=== PATIENT | male | born 1990 | race Caucasian/White ===

== ENCOUNTER 2020-09-10 07:17 | Emergency (ER) | payer SELFPAY ==
[2020-09-10 07:20] VITALS: BP 142/101; PULSE 97; RESP 15; TEMP 36.2; O2SAT 99; BMI 24.4
[2020-09-10] MEDS: ketorolac 60 mg/2 mL INJ IM (07:34)
[2020-09-10] MEDS: HYDROcodone-acetaminophen 5-325 mg Tablet 2 TAB PO (07:34)
[2020-09-10 07:42] VITALS: BP 142/101; PULSE 93; RESP 20; O2SAT 98
[2020-09-10 07:44] VITALS: BP 160/117; PULSE 95; RESP 18; O2SAT 96
--- NOTE | 2020-09-10 07:46 | ED_ITS ---
HPI - Dental/Oral General: Chief complaint: Dental/Oral Stated complaint: Tooth Pain Time Seen by Provider: 09/10/20 07:20 History of Present Illness: HPI Narrative: 30-year-old male comes in complaining of left lower jaw pain radiating down into his neck he denies difficulty breathing or swallowing. No fever. He has not seen a dentist. He has no drainage. He has a fractured tooth that broke at the gumline bleeding no swelling no drainage MD Complaint: tooth pain Teeth map: 1. Onset (ago): day(s) Duration: constant Severity: severe Relieving factors: nothing Exacerbating factors: chewing and drinking fluids Context: history of dental caries Associated symptoms: Reports ear or mastoid pain; Denies fever(s), gum swelling, odynophagia, sore throat or tongue swelling Treatment prior to arrival: none Review of Systems Const: Denies: fever(s) ENMT: Reports: ear or mastoid pain; Denies: odynophagia Card: Denies: chest pain, edema, dyspnea on exertion or orthopnea Resp: Denies: dyspnea, productive cough or non-productive cough GI: Denies: abdominal pain, nausea, vomiting, hematemesis, coffee ground emesis, diarrhea, constipation, bloating, hematochezia or melena : Denies: flank pain, dysuria, urinary frequency or urinary urgency Skin/Breast: Denies: rash or pruritus All/Imm: Denies: tongue swelling Physical Exam Const: COMMON NORMALS: no acute distress GENERAL APPEARANCE: cooperative and comfortable ORIENTATION/CONSCIOUSNESS: Yes awake, Yes oriented to person, Yes oriented to place and Yes oriented to time HENMT: COMMON NORMALS: normocephalic, atraumatic and hearing grossly normal bilaterally HEAD & SCALP: normocephalic and atraumatic Neck/C-Spine: COMMON NORMALS: full ROM, no lymphadenopathy, supple and no JVD Lymph: LYMPHATIC: no lymphadenopathy noted and no lymphedema noted Resp: COMMON NORMALS: normal respiratory effort, No retractions, No use of accessory muscles and clear to auscultation bilaterally AUSCULTATION: clear to auscultation bilaterally Cardio: COMMON NORMALS: no JVD, regular rate, regular rhythm and No murmurs present (Cardio) RATE: regular rate RHYTHM: regular rhythm Neuro: SENSORIUM/ORIENTATION: Yes oriented to person, Yes oriented to place and Yes oriented to time Skin: COMMON NORMALS: no rashes or lesions noted GENERAL SKIN EXAM: no rashes or lesions noted Course Vital Signs: Vital signs: Vital Signs Temperature 97.1 F L 09/10/20 07:20 Pulse Rate 95 09/10/20 07:44 Respiratory Rate 18 09/10/20 07:44 Blood Pressure 160/117 09/10/20 07:44 Pulse Oximetry 96 09/10/20 07:44 Discharge Plan Discharge Patient Disposition: Home Clinical Impression: Dental caries Condition: Stable Prescriptions: New Augmentin 875-125 mg tablet 1 tab PO BID Qty: 10 RF: 0 acetaminophen-codeine 300-30 mg tablet 1 tab PO Q6H PRN (Reason: pain) Qty: 14 RF: 0 Discharge Orders: Discharge ED (Routine); Ordered 09/10/20 Ordered By: Frantz Sher Referrals: [facility] [Other] Patient Instructions: Opioid Safety Coding Level of Care Code ED Business Database Analyst for Chg Fwd Exam Detailed
== END 2020-09-10 07:40 | disposition home or self-care (01) ==
PROVIDERS: Emergency Provider Family Medicine
DX: K02.9 Dental caries, unspecified (principal)
CPT/HCPCS: 96372; 99283; J1885

== ENCOUNTER 2020-10-30 02:42 | Emergency (ER) | payer SELFPAY ==
[2020-10-30 02:42] VITALS: BP 125/75; PULSE 82; RESP 20; TEMP 36.6; O2SAT 97; BMI 24.4
--- NOTE | 2020-10-30 02:47 | W.ED.ABDPA2 ---
HPI - Abdominal Pain General: Chief Complaint: Abdominal Pain Stated Complaint: high blood sugar Time Seen by Provider: 10/30/20 02:44 Source: patient Mode of arrival: ambulatory Limitations: no limitations History of Present Illness: HPI narrative: 30-year-old male with a history of type 1 diabetes states he ran out of his insulin today has been having increased blood sugar. Blood sugar by EMS was 480s. He states that he gets pain like this when his blood sugar is high states today the pain is worse than typical. He states the pain is currently an 8 out of 10. Denies any worsening improving factors. Patient given IV fluids in route. Denies vomiting MD elicited complaint: abdominal pain Associated Symptoms: Reports nausea; Denies chills, dysuria and fever(s) Review of Systems Const: Denies: fever(s), chills, body aches or change in appetite Eyes: Denies: blurry vision or eye discomfort ENMT: Denies: throat pain or dental pain Card: Denies: chest pain Resp: Denies: dyspnea GI: Reports: abdominal pain and nausea : Denies: dysuria Musc: Denies: neck pain or back pain Skin/Breast: Denies: rash Neuro: Denies: headache(s) Psych: Denies: depression Александр/Lymph: Denies: easy bruising All/Imm: Denies: urticaria Physical Exam Const: COMMON NORMALS: no acute distress, patient oriented x3 and healthy appearing HENMT: COMMON NORMALS: normocephalic and atraumatic HEAD & SCALP: normocephalic and atraumatic Eye: COMMON NORMALS: Equal, round and reactive pupils present and EOMs intact bilaterally PUPIL: Yes Equal, round and reactive pupils present Neck/C-Spine: COMMON NORMALS: full ROM and supple Chest: COMMONS NORMALS: normal inspection of the chest and normal palpation of entire chest wall Resp: COMMON NORMALS: normal respiratory effort, No retractions, No use of accessory muscles and clear to auscultation bilaterally AUSCULTATION: clear to auscultation bilaterally Cardio: COMMON NORMALS: regular rate, regular rhythm and No murmurs present (Cardio) RATE: regular rate RHYTHM: regular rhythm GI: COMMON NORMALS: Normal to inspection, nondistended, normoactive bowel sounds present, Soft to palpation, non-tender and no masses PALPATION: Yes Soft to palpation and Yes Tenderness to palpation present (GI) Details: LLQ Extremity: COMMON NORMALS: normal to inspection and full ROM Neuro: COMMON NORMALS: patient oriented x3, moves all extremities and no focal motor deficits Psych: COMMON NORMALS: mental status grossly normal, Normal thought process present and cooperative THOUGHT PROCESS: Normal thought process present Skin: COMMON NORMALS: no rashes or lesions noted and no wounds GENERAL SKIN EXAM: no rashes or lesions noted Course Vital Signs: Vital signs: Vital Signs Temperature 97.8 F 10/30/20 02:42 Pulse Rate 80 10/30/20 04:11 Respiratory Rate 19 H 10/30/20 04:11 Blood Pressure 135/72 10/30/20 04:11 Pulse Oximetry 97 10/30/20 04:11 MDM - Abdominal Pain MDM Narrative: Medical decision making narrative: Patient presents with abdominal pain with hyperglycemia. His pain here is much improved his exam at discharge is benign. White count is normal and he is has no signs of acute surgical abdomen does not require any imaging. Patient's blood sugar here is improved and he is not in DKA. Will refill his insulin he is to follow-up his PCP and return if worsening. Lab Data: Labs: Lab Results 10/30/20 10/30/20 10/30/20 Range/Units 02:51 02:53 02:54 WBC 8.4 (4.0-10.0) 10^3/ uL RBC 4.48 (4.1-5.3) 10^6/u L Hgb 13.1 (11.7-16.6) g/dL Hct 38.2 L (42.0-52.0) % MCV 85.3 (80-94) fL MCH 29.2 (28.0-34.0) pg MCHC 34.3 (30.0-36.0) g/dL RDW 11.9 L (12.1-15.1) % Plt Count 355 (130-400) 10^3/c mm MPV 11.0 H (7.4-10.4) fL Neut % (Auto) 49.0 % Lymph % (Auto) 36.4 % Turner % (Auto) 9.1 % Eos % (Auto) 3.9 % Baso % (Auto) 1.4 % Neut # (Auto) 4.09 (1.8-7.7) 10^3/u L Lymph # (Auto) 3.0 (0.8-4.8) 10^3/u L Turner # (Auto) 0.8 (0.2-0.9) 10^3/u L Eos # (Auto) 0.3 (0.0-0.8) 10^3/u L Baso # (Auto) 0.1 (0.0-0.1) 10^3/u L Nucleated RBC % (a uto) 0 % Nucleated RBCs # 0.0 /100WBC Specimen Type Arterial Sample Site Brachial, right ABG pH 7.43 (7.35-7.45) ABG pCO2 40.9 (35-45) mmHg ABG pO2 102.0 H (80.0-100.0) mmH g ABG HCO3 27.4 H (22-26) mmol/L ABG Base Excess 2.9 H (-2.0-2.0) mmol/ L Chris Test N/a Hematocrit 39.7 L (42-52) % O2 Delivery Device Room air FiO2 21.0 % Semaphore Operator ID [id number] Sodium (136-145) mmol/L Potassium (3.5-5.1) mmol/L Chloride (98-107) mmol/L Carbon Dioxide (22-29) mmol/L Anion Gap (5-19) BUN (6-20) mg/dL Creatinine (0.7-1.2) mg/dL GFR Calculation (90-130) mL/min Glucose (65-115) mg/dL POC Glucose 430 H (70-110) mg/dL Calculated Osmolal ity (285-295) mOsm/k g Calcium (8.5-10.5) mg/dL Total Bilirubin (0.15-1.2) mg/dL AST (0-40) U/L ALT (0-41) U/L Alkaline Phosphata se (40-130) IU/L Total Protein (6.6-8.7) g/dL Albumin (3.5-5.2) g/dL Globulin (1.3-4.6) g/dL 10/30/20 10/30/20 Range/Units 02:54 03:52 WBC (4.0-10.0) 10^3/ uL RBC (4.1-5.3) 10^6/u L Hgb (11.7-16.6) g/dL Hct (42.0-52.0) % MCV (80-94) fL MCH (28.0-34.0) pg MCHC (30.0-36.0) g/dL RDW (12.1-15.1) % Plt Count (130-400) 10^3/c mm MPV (7.4-10.4) fL Neut % (Auto) % Lymph % (Auto) % Turner % (Auto) % Eos % (Auto) % Baso % (Auto) % Neut # (Auto) (1.8-7.7) 10^3/u L Lymph # (Auto) (0.8-4.8) 10^3/u L Turner # (Auto) (0.2-0.9) 10^3/u L Eos # (Auto) (0.0-0.8) 10^3/u L Baso # (Auto) (0.0-0.1) 10^3/u L Nucleated RBC % (a uto) % Nucleated RBCs # /100WBC Specimen Type Sample Site ABG pH (7.35-7.45) ABG pCO2 (35-45) mmHg ABG pO2 (80.0-100.0) mmH g ABG HCO3 (22-26) mmol/L ABG Base Excess (-2.0-2.0) mmol/ L Chris Test Hematocrit (42-52) % O2 Delivery Device FiO2 % Semaphore Operator ID Sodium 133 L (136-145) mmol/L Potassium 5.9 H (3.5-5.1) mmol/L Chloride 99 (98-107) mmol/L Carbon Dioxide 25 (22-29) mmol/L Anion Gap 14.9 (5-19) BUN 13 (6-20) mg/dL Creatinine 0.9 (0.7-1.2) mg/dL GFR Calculation 100.5 (90-130) mL/min Glucose 429 H (65-115) mg/dL POC Glucose 157 H (70-110) mg/dL Calculated Osmolal ity 294 (285-295) mOsm/k g Calcium 8.8 (8.5-10.5) mg/dL Total Bilirubin 0.3 (0.15-1.2) mg/dL AST 19 (0-40) U/L ALT 18 (0-41) U/L Alkaline Phosphata se 82 (40-130) IU/L Total Protein 6.8 (6.6-8.7) g/dL Albumin 4.5 (3.5-5.2) g/dL Globulin 2.3 (1.3-4.6) g/dL Discharge Plan Discharge Patient Disposition: Home Clinical Impression: Hyperglycemia, Abdominal pain Condition: Stable Prescriptions: Continued Novolog Mix 70-30 U-100 Insuln 100 unit/mL (70-30) Solution 35 unit SUBCUT DIRECTED Qty: 10 RF: 0 Discharge Orders: Discharge ED (Routine); Ordered 10/30/20 Ordered By: Cuba Liao Referrals: [facility] [Other] Discharge Diet: Advance as tolerated Discharge Activity: Resume usual activity Patient Instructions: Abdominal Pain (ED) Coding Level of Care Code ED Sccm Administrator for Felisha Fwd Exam Comprehensive
[2020-10-30] MEDS: ondansetron 2 mg/ML SDV 2 mL 4 MG IVP (02:54)
[2020-10-30 02:57] LABS: Basophils # 0.1 10^3/uL (0.0-0.1); Basophils % 1.4 %; Eosinophils # 0.3 10^3/uL (0.0-0.8); Eosinophils % 3.9 %; Hematocrit 38.2 % (42.0-52.0); Hemoglobin 13.1 g/dL (11.7-16.6); Lymphocytes % 36.4 %; Mean Corpuscular HGB Conc 34.3 g/dL (30.0-36.0); Mean Corpuscular Hemoglobin 29.2 pg (28.0-34.0); Mean Corpuscular Volume 85.3 fL (80-94); Monocytes # 0.8 10^3/uL (0.2-0.9); Monocytes % 9.1 %; Neutrophils # 4.09 10^3/uL (1.8-7.7); Nucleated Red Blood Cells % 0 %; Platelet Count 355 10^3/cmm (130-400); Red Blood Count 4.48 10^6/uL (4.1-5.3); Red Cell Distribution Width 11.9 % (12.1-15.1); White Blood Count 8.4 10^3/uL (4.0-10.0)
[2020-10-30] MEDS: sodium chloride 0.9% 1,000 ML 999 ML IV (02:57)
[2020-10-30] MEDS: morphine 4 mg/mL SDV 1 mL IVP (02:58)
[2020-10-30 03:03] LABS: ABG PCO2 40.9 mmHg (35-45); ABG PH Result 7.43 (7.35-7.45); Arterial Blood Gas Hematocrit 39.7 % (42-52); Base Excess ABG 2.9 mmol/L (-2.0-2.0); Blood Gas Sample Site Brachial, right; Blood Gas Sample Type Arterial; HCO3 ABG 27.4 mmol/L (22-26); Oxygen Device ROOM AIR
[2020-10-30 03:04] LABS: Glucose Point of Care 430 mg/dL (70-110)
[2020-10-30 03:13] LABS: Alanine Aminotransferase 18 U/L (0-41); Albumin Level 4.5 g/dL (3.5-5.2); Alkaline Phosphatase 82 IU/L (40-130); Blood Urea Nitrogen 13 mg/dL (6-20); Calcium 8.8 mg/dL (8.5-10.5); Carbon Dioxide 25 mmol/L (22-29); Chloride 99 mmol/L (98-107); Globulin 2.3 g/dL (1.3-4.6); Glomerular Filtration Rate 100.5 mL/min (90-130); Glucose 429 mg/dL (65-115); Osmolality Calculated 294 mOsm/kg (285-295); Sodium 133 mmol/L (136-145); Total Bilirubin 0.3 mg/dL (0.15-1.2); Total Protein 6.8 g/dL (6.6-8.7)
[2020-10-30] MEDS: insulin regular-human 100 units/1 mL 10 UNIT IVP (03:13)
[2020-10-30 03:15] LABS: Anion Gap 14.9 (5-19); Aspartate Amino Transferase 19 U/L (0-40); Potassium 5.9 mmol/L (3.5-5.1)
[2020-10-30 03:59] LABS: Glucose Point of Care 157 mg/dL (70-110)
[2020-10-30 04:11] VITALS: BP 135/72; PULSE 80; RESP 19; O2SAT 97
== END 2020-10-30 04:11 | disposition home or self-care (01) ==
PROVIDERS: Emergency Provider Emergency Medicine
DX: E10.65 Type 1 diabetes mellitus with hyperglycemia (principal); Z79.4 Long term (current) use of insulin; R10.9 Unspecified abdominal pain
CPT/HCPCS: 36416; 36600; 80053; 82803; 82962; 85025; 96361; 96374; 96375; 99284; J1815; J2270; J2405; J7030

== ENCOUNTER 2020-12-08 15:26 | Emergency (ER) | payer SELFPAY ==
[2020-12-08] VITALS (8 sets, daily range): BP systolic 95–132; BP diastolic 64–81; PULSE 64–102; RESP 16–20; TEMP 36.6; O2SAT 96–100; BMI 23.7
[2020-12-08 16:06] LABS: Glucose Point of Care > 600 mg/dL (70-110)
[2020-12-08 16:36] LABS: ABG PCO2 42.8 mmHg (35-45); ABG PH Result 7.37 (7.35-7.45); Alveolar-Arterial Oxygen Gradi 3.5 mmHg (5-10); Arterial Blood Gas Hematocrit 39.9 % (42-52); Base Excess ABG -0.7 mmol/L (-2.0-2.0); Blood Gas Allen Test Pos; Blood Gas Sample Site Brachial, left; Blood Gas Sample Type Arterial; Carboxyhemoglobin 2.8 %THgb (0.4-20.1); HCO3 ABG 24.7 mmol/L (22-26); HGB O2 Sat 91.9 % (95-100); Ionized Calcium Level - ABG 1.1 mmol/L (1.1-1.4); Methemoglobin 0.8 % (0.4-1.5); Oxygen Device ROOM AIR; Oxygen Saturation ABG 95.3; PO2 ABG 69.6 mmHg (80.0-100.0); Potassium Level - ABG 6.5 mmol/L (3.5-5.0)
[2020-12-08] MEDS: insulin regular-human 100 units/1 mL 10 UNIT IVP (16:54)
[2020-12-08] MEDS: sodium chloride 0.9% 500 ML 2000 ML IV (17:00)
--- NOTE | 2020-12-08 17:05 | XRR_ITS ---
PROCEDURE INFORMATION: Exam: XR Abdomen Exam date and time: 12/08/2020 5:05 PM Age: 30 years old Clinical indication: Abdominal pain; Generalized; Additional info: Pain; N/v TECHNIQUE: Imaging protocol: XR of the abdomen. Views: Frontal supine view of the abdomen. 1 View. COMPARISON: No relevant prior studies available. FINDINGS: Gastrointestinal tract: Bowel gas pattern is grossly unremarkable. Organs: There is surgical clip to the right of the spine which may be from cholecystectomy. No urinary tract calculi are identified. Bones/joints: Bones are within normal limits. XR/XR abdomen 1V* [id number] IMPRESSION: Unremarkable limited portable KUB.
--- NOTE | 2020-12-08 17:06 | ED_ITS ---
HPI - General Adult General: Chief complaint: General Medical Stated complaint: HIGH BLOOD SUGAR/NOT REGISTERING Time Seen by Provider: 12/08/20 16:18 Source: patient Mode of arrival: ambulatory Limitations: no limitations History of Present Illness: HPI narrative: Patient states he ran out of his insulin around 2 AM today. States he had nausea and vomiting starting an hour and a half prior to arrival. He also started having upper abdominal pain mostly in the epigastrium about an hour and half prior to arrival. Denies any diarrhea. Denies any fever. Denies any cough or shortness of breath. Vaginal history includes intermittent pancreatitis, insulin-dependent diabetes mellitus, previous DKA. States he is on no other medications except for insulin. Past surgical history includes cholecystectomy but no other abdominal surgeries. Patient does smoke but denies any alcohol use. States he is nauseated now. He is having moderate epigastric abdominal pain now. Onset (ago): hour(s) (See nursing assessment and history above.) Location: abdomen (Epigastric) Radiation: non-radiation Severity: moderate Quality: sharp Pain Consistency: constant Relieving factors: none Exacerbating factors: none Associated symptoms: Reports malaise, nausea and vomiting; Deny chest pain, cough, dyspnea, fevers/chills, headache(s), rash, palpitations or short of breath Treatments prior to arrival: none Review of Systems Const: Reports: malaise; Denies: fever(s) or chills Eyes: Denies: change in vision ENMT: Denies: throat pain Card: Denies: chest pain or palpitations Resp: Denies: dyspnea or wheezing GI: Reports: abdominal pain, nausea and vomiting; Denies: hematemesis : Denies: flank pain Musc: Denies: neck pain or back pain Skin/Breast: Denies: rash or pruritus Neuro: Denies: headache(s) or numbness in extremities Psych: Reports: anxiety Endo: Reports: other (Hyperglycemia) Александр/Lymph: Denies: enlarged lymph nodes Physical Exam Const: COMMON NORMALS: patient oriented x3, no limitations, alert (Mild anxiety) and well nourished GENERAL APPEARANCE: cooperative and well kempt ORIENTATION/CONSCIOUSNESS: Yes awake, Yes oriented to person, Yes oriented to place and Yes oriented to time OTHER: Moderate discomfort due to nausea and epigastric bowel pain HENMT: COMMON NORMALS: normocephalic and atraumatic HEAD & SCALP: normocephalic and atraumatic FACE & SINUS: normal facial exam Eye: COMMON NORMALS: EOMs intact bilaterally Neck/C-Spine: COMMON NORMALS: full ROM, no lymphadenopathy, supple and no meningeal signs GENERAL: Yes normal visual inspection Lymph: LYMPHATIC: no lymphadenopathy noted Chest: COMMONS NORMALS: normal inspection of the chest and normal palpation of entire chest wall CHEST: No Ecchymosis present and No rash Resp: COMMON NORMALS: normal respiratory effort, No retractions and clear to auscultation bilaterally EFFORT & INSPECTION: No respiratory distress AUSCULTATION: clear to auscultation bilaterally Cardio: COMMON NORMALS: regular rate, regular rhythm and Peripheral pulses 2+ throughout JUGULAR VENOUS DISTENTION: no JVD RATE: regular rate RHYTHM: regular rhythm PERIPHERAL PULSES: Peripheral pulses 2+ throughout GI: COMMON NORMALS: Normal to inspection, nondistended, normoactive bowel sounds present AUSCULTATION: Yes normoactive bowel sounds PALPATION: Yes Tenderness to palpation present (GI) (Moderate epigastric abdominal pain), No Guarding due to palpation present (GI) and No Rigid due to palpation Extremity: COMMON NORMALS: normal to inspection, full ROM and capillary refill normal Neuro: COMMON NORMALS: patient oriented x3, CN's II-XII intact bilaterally, no focal motor deficits and no sensory deficits noted SENSORIUM/ORIENTATION: Yes alert (Mild anxiety), Yes oriented to person, Yes oriented to place and Yes oriented to time MENINGEAL SIGNS: Yes no meningeal signs Psych: COMMON NORMALS: mental status grossly normal and Normal thought process present APPEARANCE: Yes well kempt THOUGHT PROCESS: Normal thought process present Skin: COMMON NORMALS: no rashes or lesions noted and no wounds GENERAL SKIN EXAM: no rashes or lesions noted Course Vital Signs: Vital signs: Vital Signs Temperature 97.9 F 12/08/20 15:58 Pulse Rate 102 H 12/08/20 15:58 Respiratory Rate 20 H 12/08/20 17:33 Blood Pressure 115/81 12/08/20 17:03 Pulse Oximetry 99 12/08/20 17:03 MDM - General Adult MDM Narrative: Medical decision making narrative: Care transition to Dr. Batista at shift change. Lab Data: Attestation: I reviewed the patient's lab results. Labs: Lab Results 0712/08/20 12/08/20 Range/Units 15:47 15:57 16:24 WBC (4.0-10.0) 10^3/ uL RBC (4.1-5.3) 10^6/u L Hgb (11.7-16.6) g/dL Hct (42.0-52.0) % MCV (80-94) fL MCH (28.0-34.0) pg MCHC (30.0-36.0) g/dL RDW (12.1-15.1) % Plt Count (130-400) 10^3/c mm MPV (7.4-10.4) fL Neut % (Auto) % Lymph % (Auto) % Bailey % (Auto) % Eos % (Auto) % Baso % (Auto) % Neut # (Auto) (1.8-7.7) 10^3/u L Lymph # (Auto) (0.8-4.8) 10^3/u L Bailey # (Auto) (0.2-0.9) 10^3/u L Eos # (Auto) (0.0-0.8) 10^3/u L Baso # (Auto) (0.0-0.1) 10^3/u L Nucleated RBC % (a uto) % Nucleated RBCs # /100WBC Specimen Type Arterial Sample Site Brachial, left ABG pH 7.37 (7.35-7.45) ABG pCO2 42.8 (35-45) mmHg ABG pO2 69.6 L (80.0-100.0) mmH g ABG HCO3 24.7 (22-26) mmol/L ABG O2 Saturation 95.3 ABG Base Excess -0.7 (-2.0-2.0) mmol/ L Chris Test Pos A-a O2 Gradient 3.5 L (5-10) mmHg Hematocrit 39.9 L (42-52) % Hgb O2 Saturation 91.9 L (95-100) % Carboxyhemoglobin 2.8 (0.4-20.1) %THgb Methemoglobin 0.8 (0.4-1.5) % Total Hemoglobin 13.0 L (14-18) g/dL Sodium 126.0 L (131-143) mmol/L Potassium 6.5 H (3.5-5.0) mmol/L Glucose 868.0 H (70-115) mg/dL Ionized Calcium 1.1 (1.1-1.4) mmol/L O2 Delivery Device Room air Bleach Liquor Maker ID jmn Chloride (98-107) mmol/L Carbon Dioxide (22-29) mmol/L Anion Gap (5-19) BUN (6-20) mg/dL Creatinine (0.7-1.2) mg/dL GFR Calculation (90-130) mL/min POC Glucose > 600 H* (70-110) mg/dL Calculated Osmolal ity (285-295) mOsm/k g Lactate (0.5-2.2) mmol/L Calcium (8.5-10.5) mg/dL Total Bilirubin (0.15-1.2) mg/dL AST (0-40) U/L ALT (0-41) U/L Alkaline Phosphata se (40-130) IU/L Total Protein (6.6-8.7) g/dL Albumin (3.5-5.2) g/dL Globulin (1.3-4.6) g/dL Lipase (13-60) U/L Urine Color Yellow (Yellow) Urine Appearance Clear (CLEAR) Urine pH 6 (5-7) Ur Specific Gravit y 1.000 L (1.005-1.030) Urine Protein Neg (Negative) Urine Glucose (UA) 4+ H (Normal) Urine Ketones Negative (Negative) Urine Blood Neg (Negative) Urine Nitrate Negative (Negative) Urine Bilirubin Neg (Negative) Urine Urobilinogen Norm (Negative) mg/dL Ur Leukocyte Vivien ase Negative (Negative) Urine RBC None (0-2) /hpf Urine WBC None (0-5) /hpf Ur Squamous Epith Cells None (0-5) /hpf Amorphous Sediment Not Reportable Urine Bacteria None (NONE) /hpf 12/08/20 12/08/20 12/08/20 Range/Units 17:00 17:00 17:00 WBC 7.4 (4.0-10.0) 10^3/ uL RBC 4.55 (4.1-5.3) 10^6/u L Hgb 13.2 (11.7-16.6) g/dL Hct 41.2 L (42.0-52.0) % MCV 90.5 (80-94) fL MCH 29.0 (28.0-34.0) pg MCHC 32.0 (30.0-36.0) g/dL RDW 11.9 L (12.1-15.1) % Plt Count 342 (130-400) 10^3/c mm MPV 11.3 H (7.4-10.4) fL Neut % (Auto) 60.6 % Lymph % (Auto) 26.7 % Bailey % (Auto) 6.5 % Eos % (Auto) 4.1 % Baso % (Auto) 1.8 % Neut # (Auto) 4.46 (1.8-7.7) 10^3/u L Lymph # (Auto) 2.0 (0.8-4.8) 10^3/u L Bailey # (Auto) 0.5 (0.2-0.9) 10^3/u L Eos # (Auto) 0.3 (0.0-0.8) 10^3/u L Baso # (Auto) 0.1 (0.0-0.1) 10^3/u L Nucleated RBC % (a uto) 0 % Nucleated RBCs # 0.0 /100WBC Specimen Type Sample Site ABG pH (7.35-7.45) ABG pCO2 (35-45) mmHg ABG pO2 (80.0-100.0) mmH g ABG HCO3 (22-26) mmol/L ABG O2 Saturation ABG Base Excess (-2.0-2.0) mmol/ L Chris Test A-a O2 Gradient (5-10) mmHg Hematocrit (42-52) % Hgb O2 Saturation (95-100) % Carboxyhemoglobin (0.4-20.1) %THgb Methemoglobin (0.4-1.5) % Total Hemoglobin (14-18) g/dL Sodium 126 L (131-143) mmol/L Potassium 6.1 H (3.5-5.0) mmol/L Glucose 790 H* (70-115) mg/dL Ionized Calcium (1.1-1.4) mmol/L O2 Delivery Device Bleach Liquor Maker ID Chloride 92 L (98-107) mmol/L Carbon Dioxide 24 (22-29) mmol/L Anion Gap 16.1 (5-19) BUN 17 (6-20) mg/dL Creatinine 1.2 (0.7-1.2) mg/dL GFR Calculation 72.1 L (90-130) mL/min POC Glucose (70-110) mg/dL Calculated Osmolal ity 302 H (285-295) mOsm/k g Lactate 2.4 H (0.5-2.2) mmol/L Calcium 8.1 L (8.5-10.5) mg/dL Total Bilirubin 0.3 (0.15-1.2) mg/dL AST 20 (0-40) U/L ALT 16 (0-41) U/L Alkaline Phosphata se 83 (40-130) IU/L Total Protein 6.8 (6.6-8.7) g/dL Albumin 4.3 (3.5-5.2) g/dL Globulin 2.5 (1.3-4.6) g/dL Lipase 68 H (13-60) U/L Urine Color (Yellow) Urine Appearance (CLEAR) Urine pH (5-7) Ur Specific Gravit y (1.005-1.030) Urine Protein (Negative) Urine Glucose (UA) (Normal) Urine Ketones (Negative) Urine Blood (Negative) Urine Nitrate (Negative) Urine Bilirubin (Negative) Urine Urobilinogen (Negative) mg/dL Ur Leukocyte Vivien ase (Negative) Urine RBC (0-2) /hpf Urine WBC (0-5) /hpf Ur Squamous Epith Cells (0-5) /hpf Amorphous Sediment Urine Bacteria (NONE) /hpf 12/08/20 Range/Units 17:33 WBC (4.0-10.0) 10^3/ uL RBC (4.1-5.3) 10^6/u L Hgb (11.7-16.6) g/dL Hct (42.0-52.0) % MCV (80-94) fL MCH (28.0-34.0) pg MCHC (30.0-36.0) g/dL RDW (12.1-15.1) % Plt Count (130-400) 10^3/c mm MPV (7.4-10.4) fL Neut % (Auto) % Lymph % (Auto) % Bailey % (Auto) % Eos % (Auto) % Baso % (Auto) % Neut # (Auto) (1.8-7.7) 10^3/u L Lymph # (Auto) (0.8-4.8) 10^3/u L Bailey # (Auto) (0.2-0.9) 10^3/u L Eos # (Auto) (0.0-0.8) 10^3/u L Baso # (Auto) (0.0-0.1) 10^3/u L Nucleated RBC % (a uto) % Nucleated RBCs # /100WBC Specimen Type Sample Site ABG pH (7.35-7.45) ABG pCO2 (35-45) mmHg ABG pO2 (80.0-100.0) mmH g ABG HCO3 (22-26) mmol/L ABG O2 Saturation ABG Base Excess (-2.0-2.0) mmol/ L Chris Test A-a O2 Gradient (5-10) mmHg Hematocrit (42-52) % Hgb O2 Saturation (95-100) % Carboxyhemoglobin (0.4-20.1) %THgb Methemoglobin (0.4-1.5) % Total Hemoglobin (14-18) g/dL Sodium (131-143) mmol/L Potassium (3.5-5.0) mmol/L Glucose (70-115) mg/dL Ionized Calcium (1.1-1.4) mmol/L O2 Delivery Device Bleach Liquor Maker ID Chloride (98-107) mmol/L Carbon Dioxide (22-29) mmol/L Anion Gap (5-19) BUN (6-20) mg/dL Creatinine (0.7-1.2) mg/dL GFR Calculation (90-130) mL/min POC Glucose 531 H* (70-110) mg/dL Calculated Osmolal ity (285-295) mOsm/k g Lactate (0.5-2.2) mmol/L Calcium (8.5-10.5) mg/dL Total Bilirubin (0.15-1.2) mg/dL AST (0-40) U/L ALT (0-41) U/L Alkaline Phosphata se (40-130) IU/L Total Protein (6.6-8.7) g/dL Albumin (3.5-5.2) g/dL Globulin (1.3-4.6) g/dL Lipase (13-60) U/L Urine Color (Yellow) Urine Appearance (CLEAR) Urine pH (5-7) Ur Specific Gravit y (1.005-1.030) Urine Protein (Negative) Urine Glucose (UA) (Normal) Urine Ketones (Negative) Urine Blood (Negative) Urine Nitrate (Negative) Urine Bilirubin (Negative) Urine Urobilinogen (Negative) mg/dL Ur Leukocyte Vivien ase (Negative) Urine RBC (0-2) /hpf Urine WBC (0-5) /hpf Ur Squamous Epith Cells (0-5) /hpf Amorphous Sediment Urine Bacteria (NONE) /hpf Critical Care Time Critical Care Time: Critical Care Time: Yes Total Critical Care Time: 40 Attestation: IV insulin, IV fluids, see orders Discharge Plan Discharge Clinical Impression: Hyperglycemia due to type 1 diabetes mellitus, Type 1 diabetes mellitus on insulin therapy, Dehydration, mild Nausea & vomiting Qualifiers: Vomiting type: unspecified Vomiting Intractability: non-intractable Qualified Code(s): R11.2 - Nausea with vomiting, unspecified Condition: Stable Prescriptions: No Action Novolog Mix 70-30 U-100 Insuln 100 unit/mL (70-30) solution 35 unit SUBCUT BID RF: 0 Coding Level of Care Code ED Underground Foreman for Chg Fwd Exam Comprehensive
[2020-12-08 17:18] LABS: Basophils # 0.1 10^3/uL (0.0-0.1); Basophils % 1.8 %; Eosinophils # 0.3 10^3/uL (0.0-0.8); Eosinophils % 4.1 %; Hematocrit 41.2 % (42.0-52.0); Hemoglobin 13.2 g/dL (11.7-16.6); Lymphocytes % 26.7 %; Mean Corpuscular Volume 90.5 fL (80-94); Mean Platelet Volume 11.3 fL (7.4-10.4); Monocytes # 0.5 10^3/uL (0.2-0.9); Monocytes % 6.5 %; Neutrophils # 4.46 10^3/uL (1.8-7.7); Neutrophils % 60.6 %; Nucleated Red Blood Cells % 0 %; Platelet Count 342 10^3/cmm (130-400); Red Blood Count 4.55 10^6/uL (4.1-5.3); Red Cell Distribution Width 11.9 % (12.1-15.1); White Blood Count 7.4 10^3/uL (4.0-10.0)
[2020-12-08] MEDS: HYDROmorphone 1 mg/mL INJ 1 mL 0.5 MG IVP (17:33)
[2020-12-08] MEDS: sodium chloride 0.9% 2,000 ML 999 ML (17:34)
[2020-12-08 17:35] LABS: Lactate (Lactic Acid level) 2.4 mmol/L (0.5-2.2)
[2020-12-08] MEDS: ondansetron 2 mg/ML SDV 2 mL 4 MG IVP (17:35)
[2020-12-08] MEDS: pantoprazole 40 mg SDV IVP (17:35)
[2020-12-08 17:36] LABS: Alanine Aminotransferase 16 U/L (0-41); Albumin Level 4.3 g/dL (3.5-5.2); Alkaline Phosphatase 83 IU/L (40-130); Anion Gap 16.1 (5-19); Aspartate Amino Transferase 20 U/L (0-40); Blood Urea Nitrogen 17 mg/dL (6-20); Calcium 8.1 mg/dL (8.5-10.5); Carbon Dioxide 24 mmol/L (22-29); Chloride 92 mmol/L (98-107); Globulin 2.5 g/dL (1.3-4.6); Glomerular Filtration Rate 72.1 mL/min (90-130); Lipase 68 U/L (13-60); Potassium 6.1 mmol/L (3.5-5.1); Sodium 126 mmol/L (136-145); Total Bilirubin 0.3 mg/dL (0.15-1.2); Total Protein 6.8 g/dL (6.6-8.7)
[2020-12-08 17:37] LABS: Glucose Point of Care 531 mg/dL (70-110)
[2020-12-08 17:44] LABS: Osmolality Calculated 302 mOsm/kg (285-295)
[2020-12-08 17:45] LABS: Bilirubin Urine Neg (Negative); Blood Urine Neg (Negative); Glucose Urine UA 4+ (Normal); Ketones Urine Negative (Negative); Leukocyte Esterase Urine Negative (Negative); Nitrate Urine Negative (Negative); Protein Urine Neg (Negative); Urine Appearance Clear (CLEAR); Urine Color Yellow (Yellow); Urobilinogen Urine Norm (Negative); pH Urine 6 (5-7)
[2020-12-08 17:47] LABS: Glucose 790 mg/dL (65-115)
[2020-12-08 17:51] LABS: Add Urine Culture? No
[2020-12-08] MEDS: insulin regular-human 100 units/1 mL 5 UNIT IVP (17:56)
[2020-12-08] MEDS: HYDROmorphone 1 mg/mL INJ 1 mL IVP (19:40)
[2020-12-08 20:53] LABS: Blood Urea Nitrogen 14 mg/dL (6-20); Calcium 8.2 mg/dL (8.5-10.5); Carbon Dioxide 25 mmol/L (22-29); Chloride 106 mmol/L (98-107); Creatinine Clr Calc Pharmacy 139.3066; Glomerular Filtration Rate 100.5 mL/min (90-130); Glucose 181 mg/dL (65-115); Osmolality Calculated 291 mOsm/kg (285-295); Sodium 138 mmol/L (136-145)
[2020-12-08 20:54] LABS: Anion Gap 11.4 (5-19); Potassium 4.4 mmol/L (3.5-5.1)
[2020-12-08] MEDS: insulin aspart 70/30 100 units/1 mL 15 UNIT SUBCUT (23:14)
[2020-12-09 12:56] LABS: Glucose Point of Care 249 mg/dL (70-110)
== END 2020-12-08 23:10 | disposition home or self-care (01) ==
PROVIDERS: Student in an Organized Health Care Education/Training Program; Emergency Provider Family Medicine
DX: E10.65 Type 1 diabetes mellitus with hyperglycemia (principal); Z79.4 Long term (current) use of insulin; E86.0 Dehydration; R11.2 Nausea with vomiting, unspecified
CPT/HCPCS: 36416; 36600; 74018; 80048; 80051; 80053; 81001; 82330; 82805; 82962; 83605; 83690; 85025; 87086; 96361; 96372; 96374; 96375; 96376; 99284; C9113; J1170; J1815; J2405; J7030; J7050

== ENCOUNTER 2020-12-09 16:27 | Observation (INO) | payer SELFPAY ==
[2020-12-09 17:49] VITALS: BP 152/86; PULSE 92; RESP 16; TEMP 36.4; O2SAT 99; BMI 24.4
[2020-12-09 17:57] VITALS: BP 137/76; PULSE 76; RESP 18; O2SAT 96
[2020-12-09 18:02] LABS: Glucose Point of Care > 600 mg/dL (70-110)
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
[2020-12-09] MEDS: insulin regular-human 100 units/1 mL 10 UNIT IVP (18:43)
[2020-12-09 18:45] LABS: Basophils # 0.1 10^3/uL (0.0-0.1); Basophils % 1.5 %; Eosinophils # 0.2 10^3/uL (0.0-0.8); Eosinophils % 3.3 %; Hematocrit 41.4 % (42.0-52.0); Hemoglobin 12.3 g/dL (11.7-16.6); Lymphocytes # 1.4 10^3/uL (0.8-4.8); Lymphocytes % 23.7 %; Mean Corpuscular HGB Conc 29.7 g/dL (30.0-36.0); Mean Corpuscular Hemoglobin 29.1 pg (28.0-34.0); Mean Corpuscular Volume 97.9 fL (80-94); Mean Platelet Volume 11.5 fL (7.4-10.4); Monocytes # 0.4 10^3/uL (0.2-0.9); Monocytes % 6.4 %; Neutrophils # 3.95 10^3/uL (1.8-7.7); Neutrophils % 64.9 %; Nucleated Red Blood Cells % 0 %; Platelet Count 304 10^3/cmm (130-400); Red Blood Count 4.23 10^6/uL (4.1-5.3); Red Cell Distribution Width 11.6 % (12.1-15.1); White Blood Count 6.1 10^3/uL (4.0-10.0)
[2020-12-09 18:52] LABS: Ketone (Acetest) Serum Negative (Negative)
[2020-12-09] MEDS: sodium chloride 0.9% 1,000 ML 999 ML IV ×2 (19:01→19:54)
[2020-12-09 19:02] LABS: Alanine Aminotransferase 21 U/L (0-41); Alkaline Phosphatase 89 IU/L (40-130); Anion Gap 16.9 (5-19); Aspartate Amino Transferase 34 U/L (0-40); Blood Urea Nitrogen 19 mg/dL (6-20); Calcium 8.1 mg/dL (8.5-10.5); Carbon Dioxide 24 mmol/L (22-29); Chloride 84 mmol/L (98-107); Globulin 2.7 g/dL (1.3-4.6); Glomerular Filtration Rate 65.7 mL/min (90-130); Total Bilirubin 0.4 mg/dL (0.15-1.2); Total Protein 6.7 g/dL (6.6-8.7)
[2020-12-09 19:11] LABS: Osmolality Calculated 317 mOsm/kg (285-295)
--- NOTE | 2020-12-09 19:24 | PC.NURSE ---
care transferred to this nurse at 1909
[2020-12-09 19:29] LABS: Add Urine Microscopic? NO; Charge for UA Resulting for Rev
[2020-12-09 19:40] LABS: Bilirubin Urine Neg (Negative); Blood Urine Neg (Negative); Glucose Urine UA 4+ (Normal); Ketones Urine Negative (Negative); Leukocyte Esterase Urine Negative (Negative); Nitrate Urine Negative (Negative); Protein Urine Neg (Negative); Specific Gravity, Urine 1.005 (1.005-1.030); Urine Appearance Clear (CLEAR); Urine Color Straw (Yellow); Urobilinogen Urine Norm (Negative); pH Urine 6.5 (5-7)
--- NOTE | 2020-12-09 19:43 | ECG_ITS ---
[facility] Test Date: 2020-12-09 Pat Name: Juvenal García Department: Room: Gender: Male Hims Clerk: : 1990 Requested By: Dago Batista Order Number: [id number] Cutler MD: Carey Watson M.D. Measurements Intervals [place] Rate: 69 P: 67 IN: 148 QRS: 74 QRSD: 89 T: 64 QT: 372 QTc: 400 Interpretive Statements SINUS RHYTHM WITH SINUS ARRHYTHMIA MODERATE ST DEPRESSION [0.05+ mV ST DEPRESSION] No previous ECG available for comparison Electronically Signed On 12-09-2020 22:55:31 CDT by Carey Watson M.D. [email or web address]
[2020-12-09 19:44] LABS: Glucose 1341 mg/dL (65-115); Potassium 6.9 mmol/L (3.5-5.1); Sodium 118 mmol/L (136-145)
[2020-12-09 19:55] VITALS: BP 139/87; PULSE 67; RESP 19; O2SAT 98
[2020-12-09 22:02] LABS: Glucose Point of Care > 600 mg/dL (70-110)
[2020-12-09 22:02] LABS: Glucose Point of Care > 600 mg/dL (70-110)
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
[2020-12-09 22:38] LABS: Anion Gap 13.7 (5-19); Blood Urea Nitrogen 21 mg/dL (6-20); Calcium 8.3 mg/dL (8.5-10.5); Carbon Dioxide 24 mmol/L (22-29); Chloride 93 mmol/L (98-107); Glomerular Filtration Rate 72.1 mL/min (90-130); Lipase 27 U/L (13-60); Magnesium 1.7 mg/dL (1.7-2.3); Phosphorus 1.2 mg/dL (2.5-4.5); Potassium 5.7 mmol/L (3.5-5.1); Sodium 125 mmol/L (136-145)
[2020-12-09 22:46] LABS: Osmolality Calculated 313 mOsm/kg (285-295)
[2020-12-09 22:52] LABS: Glucose 1007 mg/dL (65-115)
[2020-12-09] MEDS: sodium chloride 0.9% 1,000 ML 150 ML IV (22:53)
[2020-12-09] MEDS: insulin aspart 70/30 100 units/1 mL 20 UNIT SUBCUT (22:53)
[2020-12-09 23:00] VITALS: BP 138/87; PULSE 62; RESP 19; O2SAT 100
[2020-12-10 02:33] LABS: Glucose Point of Care 368 mg/dL (70-110)
[2020-12-10] MEDS: ketorolac 30 mg/mL INJ 15 MG IVP (02:45)
[2020-12-10 03:20] VITALS: BP 134/85; PULSE 61; RESP 17; O2SAT 98
[2020-12-10 04:20] LABS: Anion Gap 14.9 (5-19); Blood Urea Nitrogen 19 mg/dL (6-20); Calcium 9.3 mg/dL (8.5-10.5); Carbon Dioxide 27 mmol/L (22-29); Chloride 105 mmol/L (98-107); Glucose 279 mg/dL (65-115); Osmolality Calculated 308 mOsm/kg (285-295); Phosphorus 6.5 mg/dL (2.5-4.5); Potassium 3.9 mmol/L (3.5-5.1); Sodium 143 mmol/L (136-145)
[2020-12-10 04:22] LABS: Estmated Average Glucose 263; Hemoglobin A1C 10.8 % (4.0-6.0)
[2020-12-10] MEDS: sodium chlor 0.9% + KCl 20 mEq 20 MEQ/1,000 ML BAG 150 MEQ IV ×2 (04:53→11:20)
[2020-12-10 05:05] VITALS: BP 128/81; PULSE 62; RESP 18; O2SAT 99
[2020-12-10 06:02] LABS: Glucose Point of Care 47 mg/dL (70-110)
[2020-12-10 07:21] VITALS: BP 97/53; PULSE 82; RESP 18; O2SAT 96
[2020-12-10 07:41] LABS: Glucose Point of Care 168 mg/dL (70-110)
[2020-12-10] MEDS: famotidine 20 mg Tablet PO (08:16)
[2020-12-10] MEDS: insulin aspart 70/30 100 units/1 mL 20 UNIT SUBCUT (09:07)
[2020-12-10 11:26] VITALS: BP 101/58; PULSE 60; RESP 18; O2SAT 100
--- NOTE | 2020-12-10 11:32 | PC.NURSE ---
Patient provided with orange juice and encouraged to eat due to blood sugar being 51.
[2020-12-10 11:35] LABS: Glucose Point of Care 51 mg/dL (70-110)
--- NOTE | 2020-12-10 11:53 | PM.DCS ---
Discharge Providers Date of Admission: 12/09/20 23:05 Date of Discharge: December 10, 2020 Attending Provider at Admission: Mariangel Navarro MD Attending Provider at Discharge: Vic Mabry MD Diagnoses at Discharge Discharge Diagnosis (1) Hyperglycemia due to type 1 diabetes mellitus: Status: Chronic (2) Noncompliance: Status: Acute (3) Financial difficulties: Status: Acute Reason for Visit Reason for Visit: high blood sugar/here last night for same Hospital Course Hospital Course 30 year old male with type 1 diabetes male who presents with high blood sugars. He was seen in the emergency room yesterday for the same presentation. He was kicked out of wherever he was residing and indicates that whomever kicked him out is holding his money card [employer]. For this reason he has not been able to obtain any insulin. He ran out a few days ago. He normally gets his insulin at [facility]. Yesterday he had nausea, vomiting and abdominal pain at presentation. Blood sugars were in the 700s. He had an elevated potassium at 6.1. He received IV fluids and insulin therapy with correction of laboratory studies. Prescription was written for insulin therapy but he did not go get insulin prescription filled since he did not have any money to pay for it. He checked his blood sugars throughout the day today and they steadily elevated. He denies nausea and vomiting today. He denies any fever or chills. No upper respiratory symptoms, sore throat, sores in mouth. He does have bad dentition. No earache. No chest pain or shortness of breath. Continues to complain of some abdominal discomfort. No diarrhea or constipation. Denies any sores of concern anywhere on his body. Eqede-ro-dtew blood sugar was greater than 600. Venous blood sugar was around 1300. Potassium was again elevated greater than 6 and he had sodium of 118, urine ketones with negative serum ketones, clinical dehydration, slight elevation in creatinine. He was given some insulin and IV fluids. He was admitted for the management of uncontrolled hyperglycemia in the setting of noncompliance, and absence of DKA. With continued IV hydration and insulin therapy, electrolyte abnormalities were corrected blood sugar was well controlled.Dehydration has resolved with IV fluids, he was hemodynamically stable, was eating drinking well. Blood sugar in the morning was on the slightly lower side, for which he preferred to take some Sprite and some snacks. Abdominal x-ray done : Was unremarkable. Patient was provided bed to [facility] service he was discharged on NovoLog Mix 70/30 35 units subcu twice daily. Patient overall responded well to the above medical management and is being discharged in stable condition. Physical Exam Narrative: EXAM NARRATIVE: GENERAL: Well-built male not in acute distress CARDIOVASCULAR SYSTEM: S1-S2 regular. No S3 or S4 present. [No murmur rubs or gallops.] RESPIRATORY SYSTEM: Chest clear to auscultation. No wheezes rhonchi or rubs heard. [] No use of accessory muscles. ABDOMEN: Soft, nontender and nondistended. Normal bowel sounds present. No hepatosplenomegaly appreciated. [] EXTREMITIES: No cyanosis or clubbing. [No edema]. No signs of chronic venous insufficiency. ELECTROMECHANICAL TECHNICIAN: Patient is alert oriented ?3. No focal neurological deficits. Cranial nerves intact. [] SKIN: Normal turgor and temperature. No breakdown, rash or nail changes noted. [] PSYCH: Normal insight and judgment. No suicidal or homicidal ideations. Discharge Data Data Completed and Pending: Labs from last 24 hours 12/10/20 12/10/20 12/10/20 11:29 07:36 05:59 WBC RBC Hgb Hct MCV MCH MCHC RDW Plt Count MPV Neut % (Auto) Lymph % (Auto) [place] % (Auto) Eos % (Auto) Baso % (Auto) Neut # (Auto) Lymph # (Auto) [place] # (Auto) Eos # (Auto) Baso # (Auto) Nucleated RBC % (a uto) Nucleated RBCs # Sodium Potassium Chloride Carbon Dioxide Anion Gap BUN Creatinine GFR Calculation Glucose POC Glucose 51 L 168 H 47 L Estimat Average Gl ucose Hemoglobin A1c Calculated Osmolal ity Calcium Phosphorus Magnesium Total Bilirubin AST ALT Alkaline Phosphata se Total Protein Albumin Globulin Lipase Urine Color Urine Appearance Urine pH Ur Specific Gravit y Urine Protein Urine Glucose (UA) Urine Ketones Urine Blood Urine Nitrate Urine Bilirubin Urine Urobilinogen Ur Leukocyte Vivien ase Serum Ketones 12/10/20 12/10/20 12/10/20 03:56 03:56 02:30 WBC RBC Hgb Hct MCV MCH MCHC RDW Plt Count MPV Neut % (Auto) Lymph % (Auto) [place] % (Auto) Eos % (Auto) Baso % (Auto) Neut # (Auto) Lymph # (Auto) [place] # (Auto) Eos # (Auto) Baso # (Auto) Nucleated RBC % (a uto) Nucleated RBCs # Sodium 143 D Potassium 3.9 Chloride 105 Carbon Dioxide 27 Anion Gap 14.9 BUN 19 Creatinine 1.0 GFR Calculation 89.0 L Glucose 279 H POC Glucose 368 H Estimat Average Gl ucose 263 Hemoglobin A1c 10.8 H Calculated Osmolal ity 308 H Calcium 9.3 Phosphorus 6.5 H D Magnesium 2.0 Total Bilirubin AST ALT Alkaline Phosphata se Total Protein Albumin Globulin Lipase Urine Color Urine Appearance Urine pH Ur Specific Gravit y Urine Protein Urine Glucose (UA) Urine Ketones Urine Blood Urine Nitrate Urine Bilirubin Urine Urobilinogen Ur Leukocyte Vivien ase Serum Ketones 12/09/20 12/09/20 12/09/20 22:07 21:58 21:57 WBC RBC Hgb Hct MCV MCH MCHC RDW Plt Count MPV Neut % (Auto) Lymph % (Auto) [place] % (Auto) Eos % (Auto) Baso % (Auto) Neut # (Auto) Lymph # (Auto) [place] # (Auto) Eos # (Auto) Baso # (Auto) Nucleated RBC % (a uto) Nucleated RBCs # Sodium 125 L Potassium 5.7 H Chloride 93 L Carbon Dioxide 24 Anion Gap 13.7 BUN 21 H Creatinine 1.2 GFR Calculation 72.1 L Glucose 1007 H* POC Glucose > 600 H* > 600 H* Estimat Average Gl ucose Hemoglobin A1c Calculated Osmolal ity 313 H Calcium 8.3 L Phosphorus 1.2 L Magnesium 1.7 Total Bilirubin AST ALT Alkaline Phosphata se Total Protein Albumin Globulin Lipase 27 Urine Color Urine Appearance Urine pH Ur Specific Gravit y Urine Protein Urine Glucose (UA) Urine Ketones Urine Blood Urine Nitrate Urine Bilirubin Urine Urobilinogen Ur Leukocyte Vivien ase Serum Ketones 12/09/20 12/09/20 12/09/20 18:35 18:35 18:35 WBC 6.1 RBC 4.23 Hgb 12.3 Hct 41.4 L MCV 97.9 H MCH 29.1 MCHC 29.7 L RDW 11.6 L Plt Count 304 MPV 11.5 H Neut % (Auto) 64.9 Lymph % (Auto) 23.7 [place] % (Auto) 6.4 Eos % (Auto) 3.3 Baso % (Auto) 1.5 Neut # (Auto) 3.95 Lymph # (Auto) 1.4 [place] # (Auto) 0.4 Eos # (Auto) 0.2 Baso # (Auto) 0.1 Nucleated RBC % (a uto) 0 Nucleated RBCs # 0.0 Sodium 118 L* D Potassium 6.9 H* D Chloride 84 L Carbon Dioxide 24 Anion Gap 16.9 BUN 19 Creatinine 1.3 H GFR Calculation 65.7 L Glucose 1341 H* POC Glucose Estimat Average Gl ucose Hemoglobin A1c Calculated Osmolal ity 317 H Calcium 8.1 L Phosphorus Magnesium Total Bilirubin 0.4 AST 34 ALT 21 Alkaline Phosphata se 89 Total Protein 6.7 Albumin 4.0 Globulin 2.7 Lipase Urine Color Urine Appearance Urine pH Ur Specific Gravit y Urine Protein Urine Glucose (UA) Urine Ketones Urine Blood Urine Nitrate Urine Bilirubin Urine Urobilinogen Ur Leukocyte Vivien ase Serum Ketones Negative 12/09/20 12/09/20 17:51 17:43 WBC RBC Hgb Hct MCV MCH MCHC RDW Plt Count MPV Neut % (Auto) Lymph % (Auto) [place] % (Auto) Eos % (Auto) Baso % (Auto) Neut # (Auto) Lymph # (Auto) [place] # (Auto) Eos # (Auto) Baso # (Auto) Nucleated RBC % (a uto) Nucleated RBCs # Sodium Potassium Chloride Carbon Dioxide Anion Gap BUN Creatinine GFR Calculation Glucose POC Glucose > 600 H* Estimat Average Gl ucose Hemoglobin A1c Calculated Osmolal ity Calcium Phosphorus Magnesium Total Bilirubin AST ALT Alkaline Phosphata se Total Protein Albumin Globulin Lipase Urine Color Straw Urine Appearance Clear Urine pH 6.5 Ur Specific Gravit y 1.005 Urine Protein Neg Urine Glucose (UA) 4+ H Urine Ketones Negative Urine Blood Neg Urine Nitrate Negative Urine Bilirubin Neg Urine Urobilinogen Norm Ur Leukocyte Vivien ase Negative Serum Ketones Vitals: Last Vital Signs Temp 97.6 F 12/09/20 17:49 Pulse 60 12/10/20 11:26 Resp 18 12/10/20 11:26 BP 101/58 12/10/20 11:26 Pulse Ox 100 12/10/20 11:26 Discharge Plan Discharge Patient Disposition: Home Condition: Stable Prescriptions: Continued insulin asp prt-insulin aspart [Novolog Mix 70-30 U-100 Insuln] 100 unit/mL (70-30) solution 35 unit SUBCUT BID Qty: 10 RF: 5 Discharge Orders: Discharge Order (Routine); Ordered 12/10/20 Ordered By: Vic Mabry Discharge Diet: Diabetic Discharge Activity: Resume usual activity Patient Instructions: Opioid Safety Discharge Attestations Time Spent in Discharge Care*: less than 30 min Specific Discharge Activities: educating patient, educating and/or supporting family/caregiver, discussing with correctional case records supervisor/social workers/dc planners, documenting/other paperwork and evaluating patient/reviewing data Status at Discharge: Cognitive status at discharge: cognitively intact, Behavioral status at discharge: cooperative, Functional status at discharge: independent ambulation Overall status at discharge: patient is back to baseline Quality Metrics Clinical Quality Measures During this hospital stay, did patient experience: None Coding Level of Care Code Acute Chg FW DC note Diagnoses Hyperglycemia due to type 1 diabetes mellitus E10.65 Noncompliance Z91.19 Financial difficulties Z59.8
[2020-12-10 12:15] LABS: Glucose Point of Care 110 mg/dL (70-110)
[2020-12-10 14:41] VITALS: BP 106/60; PULSE 64; RESP 16; O2SAT 97
--- NOTE | 2020-12-10 16:07 | PC.NURSE ---
PT WAS EATING LUNCH IN THE VERTICAL FLOW AREA. PT WAS INFORMED THAT HIS MEDS WOULD BE ABOUT 20 MINS. THIS NURSE REQUESTED THAT PT STAY IN THE ROOM UNTIL HIS MEDS ARRIVED. PHARMACY BROUGHT THE PTS MEDS AND WHEN THIS NURSE WENT IN TO GIVE HIM HIS MEDICATIONS HE WAS NOT IN THE AREA. THIS NURSE LOOKED OUTSIDE AND ATTEMPTED TO CALL THE NUMBERS LISTED ON HIS FACESHEET. THE ONLY WORKING NUMBER WAS HIS DAD WHO WAS IN [place] AND HAD NO CONTACT WITH HIM
== END 2020-12-10 14:43 | disposition home or self-care (01) ==
LOC: ER 17:58 → ER IP 12-10 07:54
PROVIDERS: Physician Assistant; Admitting Provider Hospitalist; Emergency Provider Student in an Organized Health Care Education/Training Program; Visit Provider Internal Medicine
DX: E10.65 Type 1 diabetes mellitus with hyperglycemia (principal); Z91.19 Patient's noncompliance with other medical treatment and regimen; Z59.8 Other problems related to housing and economic circumstances; F17.210 Nicotine dependence, cigarettes, uncomplicated
CPT/HCPCS: 36415; 36416; 80048; 80053; 81003; 82009; 82962; 83036; 83690; 83735; 84100; 85025; 93005; 96365; 96366; 96367; 96372; 96375; 96376; 99285; G0378; J1815; J1885; J7030

== ENCOUNTER 2021-01-15 22:00 | Emergency (ER) | payer SELFPAY ==
[2021-01-15 22:20] VITALS: BP 122/84; PULSE 120; RESP 18; TEMP 36.9; O2SAT 98; BMI 24.4
--- NOTE | 2021-01-15 22:51 | W.ED.GENADLT ---
HPI - General Adult General: Chief complaint: General Medical Stated complaint: passed out at work, [place] Time Seen by Provider: 01/15/21 22:50 History of Present Illness: HPI narrative: 30-year-old male patient comes in today for episode of heat exhaustion. Patient works in a very physical environment and became overheated at work that made him very lightheaded that he had to lay down. Patient has been drinking plenty of fluids since recovering but needed a work note to return to work. Patient does also have a history of type 1 diabetes. Patient is alert oriented and appears well. Review of Systems General: Reports: 10 or more systems reviewed and unremarkable except in HPI and below Neuro: Reports: dizziness PFSH ED PFSH: Medical History (Updated 01/15/21 @ 23:00 by GM Amin) Financial difficulties Hyperglycemia due to type 1 diabetes mellitus Noncompliance Type 1 diabetes Surgical History (Updated 12/09/20 @ 22:43 by Mariangel Navarro MD) History of cholecystectomy Family History (Updated 12/09/20 @ 22:44 by Mariangel Navarro MD) Denies family history of Diabetes Social History (Updated 12/09/20 @ 22:45 by Mariangel Navarro MD) Smoking and tobacco status: current every day smoker cigarettes Alcohol intake: never Housing: Homeless Financial difficulty paying for basics: Very Hard Physical Exam Const: COMMON NORMALS: no acute distress and patient oriented x3 GENERAL APPEARANCE: cooperative HENMT: COMMON NORMALS: normocephalic, TM's normal bilaterally and Normal external nose present HEAD & SCALP: normal to inspection and normocephalic NOSE: Normal external nose present TYMPANIC MEMBRANE: TM's normal bilaterally MOUTH: Normal oral and palatal mucosa present THROAT: posterior oropharynx normal Eye: GENERAL EYE: appearance normal, both eyes and all related structures Neck/C-Spine: COMMON NORMALS: full ROM Lymph: LYMPHATIC: no lymphadenopathy noted Chest: COMMONS NORMALS: normal inspection of the chest Resp: COMMON NORMALS: normal respiratory effort EFFORT & INSPECTION: Yes able to speak in complete sentences Cardio: COMMON NORMALS: regular rate and regular rhythm RATE: regular rate RHYTHM: regular rhythm GI: COMMON NORMALS: non-tender Extremity: COMMON NORMALS: normal to inspection Neuro: COMMON NORMALS: patient oriented x3 and moves all extremities Psych: COMMON NORMALS: mental status grossly normal and cooperative Skin: COMMON NORMALS: no rashes or lesions noted GENERAL SKIN EXAM: no rashes or lesions noted Course Vital Signs: Vital signs: Vital Signs Temperature 98.4 F 01/15/21 22:20 Pulse Rate 120 H 01/15/21 22:20 Respiratory Rate 18 01/15/21 22:20 Blood Pressure 122/84 01/15/21 22:20 Pulse Oximetry 98 01/15/21 22:20 MDM - General Adult MDM Narrative: Medical decision making narrative: Patient comes in today for reevaluation after an episode of heat exhaustion at work. Patient reports getting overheated at work and having to stop working in order to rest and recover. Patient needed a release to go back to work. Patient states he feels better than he did this afternoon when he became overheated. On exam patient's oral mucosa is normal. We did a fingerstick blood sugar it showed 352. Patient is alert oriented and appears well. Vital signs are normal. Differential diagnosis includes but not limited to heat exhaustion, dehydration, hyperglycemia. Patient appears well. Patient states he feels much better than he did when he was overheated. Patient has been drinking plenty of fluids since the episode. At this time I did not see need for further evaluation with laboratory. Patient agreed to plan and was released to return to work tomorrow. Discussed prophylaxis with Gatorade or electrolyte solutions and drinking plenty of water. Patient reported understanding and agreed to plan. Lab Data: Labs: Lab Results 01/15/21 Range/Units 22:50 POC Glucose 352 H (70-110) mg/dL Discharge Plan Discharge Patient Disposition: Home Clinical Impression: Heat exhaustion Qualifiers: Encounter type: initial encounter Qualified Code(s): T67.5XXA - Heat exhaustion, unspecified, initial encounter Condition: Stable Prescriptions: No Action Novolog Mix 70-30 U-100 Insuln 100 unit/mL (70-30) solution 35 unit SUBCUT BID 30 Days Qty: 10 RF: 5 Discharge Orders: Discharge ED (Routine); Ordered 01/15/21 Ordered By: Oh Donis Discharge Diet: Usual diet Discharge Activity: Increase activity as tolerated Patient Instructions: Heat Exhaustion (ED), Opioid Safety Activity Restrictions/Additional Instructions: Make sure to stay well-hydrated during the heat of the day. Alternate with some Gatorade or other electrolyte solution such as Pedialyte to maintain your body salts such as sodium and potassium. Healthy diet. Follow-up with primary care. Return to the ER for new concerns. Stand Alone Forms: Work/School Release Coding Level of Care Code ED Freight Loader for Felisha Kendall
[2021-01-15 22:56] LABS: Glucose Point of Care 352 mg/dL (70-110)
--- NOTE | 2021-01-15 22:59 | PC.NURSE ---
pt came in to get cleared to go back to work.
[2021-01-15 23:08] VITALS: BP 146/91; PULSE 115; RESP 18; TEMP 36.6; O2SAT 100
== END 2021-01-15 23:09 | disposition home or self-care (01) ==
PROVIDERS: Emergency Provider Nurse Practitioner Family
DX: T67.5XXA Heat exhaustion, unspecified, initial encounter (principal); E10.8 Type 1 diabetes mellitus with unspecified complications; F17.210 Nicotine dependence, cigarettes, uncomplicated; X30.XXXA Exposure to excessive natural heat, initial encounter
CPT/HCPCS: 36416; 82962; 99282

== ENCOUNTER 2021-05-01 18:40 | Inpatient (IN) | payer SELFPAY ==
[2021-05-01 19:14] VITALS: BP 137/84; PULSE 100; RESP 16; TEMP 36.7; O2SAT 97; BMI 24.4
[2021-05-01 19:15] LABS: Glucose Point of Care 394 mg/dL (70-110)
[2021-05-01 19:17] LABS: Basophils # 0.1 10^3/uL (0.0-0.1); Basophils % 1.1 %; Eosinophils # 0.3 10^3/uL (0.0-0.8); Eosinophils % 2.3 %; Hematocrit 41.8 % (42.0-52.0); Hemoglobin 14.2 g/dL (11.7-16.6); Lymphocytes # 1.8 10^3/uL (0.8-4.8); Lymphocytes % 14.9 %; Mean Corpuscular Hemoglobin 28.6 pg (28.0-34.0); Mean Corpuscular Volume 84.3 fl (80-94); Mean Platelet Volume 10.7 fL (7.4-10.4); Monocytes # 0.7 10^3/uL (0.2-0.9); Monocytes % 5.5 %; Neutrophils # 9.33 10^3/uL (1.8-7.7); Neutrophils % 75.9 %; Nucleated Red Blood Cells % 0 %; Platelet Count 400 10^3/cmm (130-400); Red Blood Count 4.96 10^6/uL (4.1-5.3); White Blood Count 12.3 10^3/uL (4.0-10.0)
[2021-05-01 19:18] VITALS: BP 130/80; PULSE 90; RESP 16; TEMP 36.7; O2SAT 97
[2021-05-01] MEDS: insulin regular-human 100 units/1 mL 20 UNIT SUBCUT (19:34)
[2021-05-01 19:51] LABS: Alanine Aminotransferase 14 U/L (0-41); Albumin Level 4.2 g/dL (3.5-5.2); Alkaline Phosphatase 97 IU/L (40-130); Anion Gap 18.5 (5-19); Aspartate Amino Transferase 18 U/L (0-40); Blood Urea Nitrogen 14 mg/dL (6-20); Calcium 9.1 mg/dL (8.5-10.5); Carbon Dioxide 22 mmol/L (22-29); Chloride 98 mmol/L (98-107); Globulin 3.1 g/dL (1.3-4.6); Glomerular Filtration Rate 79.7 mL/min (90-130); Glucose 421 mg/dL (65-115); Osmolality Calculated 296 mOsm/kg (285-295); Potassium 4.5 mmol/L (3.5-5.1); Sodium 134 mmol/L (136-145); Total Bilirubin 0.3 mg/dL (0.15-1.2); Total Protein 7.3 g/dL (6.6-8.7)
[2021-05-01 19:53] LABS: Acetaminophen < 5.0 ug/mL (10-30); Alcohol Level < 10 mg/dL (0-10); Salicylate < 0.3 mg/dL (3-10)
[2021-05-01 20:26] VITALS: BP 130/80; PULSE 90; RESP 16; TEMP 36.7; O2SAT 97
--- NOTE | 2021-05-01 20:46 | ED.C_ITS ---
HPI - Psych General: Chief Complaint: Psychiatric Symptoms Stated Complaint: SI; DEPRESSION Time Seen by Provider: 05/01/21 18:58 History of Present Illness: HPI Narrative: 30-year-old male type I diabetic with no history of prior hospitalization or suicidal attempt for depression. He presents depressed, stating that he wanted to . His plan was to sit in the middle of the road and hopefully a car would hit me. He denies any ingestion, intoxication, or recent illness that is significant. He has had trouble controlling his blood sugars lately, as he has no insurance and no money for insulin. MD complaint: suicidal ideation and feels depressed Onset (ago): hour(s) Duration: constant and getting worse History of same: No Relieving factors: none Exacerbating factors: none Associated psychiatric symptoms: depression and suicidal ideation Associated symptoms: Reports depression and suicidal ideation; Deny auditory hallucinations, visual hallucinations or homicidal ideation If self harm: admits thoughts of self harm and has plan Review of Systems Const: Denies: fever(s) or chills Card: Denies: chest pain or palpitations Resp: Denies: dyspnea or productive cough GI: Denies: abdominal pain, nausea or vomiting Neuro: Denies: headache(s) Psych: Reports: depression and suicidal ideation; Denies: visual hallucinations, auditory hallucinations or homicidal ideation [facility] ED PFSH: Medical History (Updated 01/23/21 @ 00:01 by ) Financial difficulties Hyperglycemia due to type 1 diabetes mellitus Noncompliance Type 1 diabetes Surgical History (Updated 12/09/20 @ 22:43 by Mariangel Navarro MD) History of cholecystectomy Family History (Updated 12/09/20 @ 22:44 by Mariangel Navarro MD) Denies family history of Diabetes Social History (Updated 12/09/20 @ 22:45 by Mariangel Navarro MD) Smoking and tobacco status: current every day smoker cigarettes Alcohol intake: never Housing: Homeless Financial difficulty paying for basics: Very Hard Physical Exam Const: COMMON NORMALS: no acute distress, patient oriented x3 and alert GE NERAL APPEARANCE: cooperative HENMT: COMMON NORMALS: normocephalic HEAD & SCALP: normocephalic Eye: COMMON NORMALS: Equal, round and reactive pupils present and EOMs intact bilaterally PUPIL: Yes Equal, round and reactive pupils present Chest: COMMONS NORMALS: normal inspection of the chest Resp: COMMON NORMALS: normal respiratory effort, No use of accessory muscles and clear to auscultation bilaterally AUSCULTATION: clear to auscultation bilaterally Cardio: COMMON NORMALS: regular rate and regular rhythm RATE: regular rate RHYTHM: regular rhythm GI: COMMON NORMALS: Normal to inspection, nondistended, normoactive bowel sounds present Neuro: COMMON NORMALS: patient oriented x3 SENSORIUM/ORIENTATION: Yes alert Psych: COMMON NORMALS: mental status grossly normal and cooperative APPEARANCE: Yes grossly normal ATTITUDE: Yes calm ACTIVITY/MOTOR BEHAVIOR: Yes psychomotor slowing SPEECH: Yes slow MOOD & AFFECT: Yes depressed mood and Yes apathetic THOUGHT CONTENT: Yes Suicidality present and No Hallucination(s) present ATTENTION/CONCENTRATION: Yes attention grossly intact and Yes concentration grossly intact MEMORY/COGNITION: Yes memory grossly intact and Yes cognition grossly intact INSIGHT: Fair insight present (Psych) JUDGEMENT: Fair judgement present (Psych) Course Consultations: Consultation #1: don Vital Signs: Vital signs: Vital Signs Temperature 98.0 F 05/01/21 20:26 Pulse Rate 90 05/01/21 20:53 Respiratory Rate 16 05/01/21 20:53 Blood Pressure 113/55 05/01/21 20:53 Pulse Oximetry 97 05/01/21 20:53 MDM - Psych MDM Narrative: Medical decision making narrative: Labs stable. Not intoxicated. Medically stable for in NPU admission Lab Data: Labs: Lab Results 05/01/21 05/01/21 05/01/21 19:10 19:10 19:12 WBC 12.3 10^3/uL H 10 ^3/uL (4.0-10.0) RBC 4.96 10^6/uL 10^6 /uL (4.1-5.3) Hgb 14.2 g/dL g/dL (11.7-16.6) Hct 41.8 % L % (42.0-52.0) MCV 84.3 fl fl (80-94) MCH 28.6 pg pg (28.0-34.0) MCHC 34.0 g/dL g/dL (30.0-36.0) RDW 12.0 % L % (12.1-15.1) Plt Count 400 10^3/cmm 10^3 /cmm (130-400) MPV 10.7 fL H fL (7.4-10.4) Neut % (Auto) 75.9 % % Lymph % (Auto) 14.9 % % [place] % (Auto) 5.5 % % Eos % (Auto) 2.3 % % Baso % (Auto) 1.1 % % Neut # (Auto) 9.33 10^3/uL H 10 ^3/uL (1.8-7.7) Lymph # (Auto) 1.8 10^3/uL 10^3/ uL (0.8-4.8) [place] # (Auto) 0.7 10^3/uL 10^3/ uL (0.2-0.9) Eos # (Auto) 0.3 10^3/uL 10^3/ uL (0.0-0.8) Baso # (Auto) 0.1 10^3/uL 10^3/ uL (0.0-0.1) Nucleated RBC % (a uto) 0 % % Nucleated RBCs # 0.0 /100WBC /100W BC Sodium 134 mmol/L L mmol /L (136-145) Potassium 4.5 mmol/L mmol/L (3.5-5.1) Chloride 98 mmol/L mmol/L (98-107) Carbon Dioxide 22 mmol/L mmol/L (22-29) Anion Gap 18.5 (5-19) BUN 14 mg/dL mg/dL (6-20) Creatinine 1.1 mg/dL mg/dL (0.7-1.2) GFR Calculation 79.7 mL/min L mL/ min (90-130) Glucose 421 mg/dL H mg/dL (65-115) POC Glucose 394 mg/dL H mg/dL (70-110) Calculated Osmolal ity 296 mOsm/kg H mOs m/kg (285-295) Calcium 9.1 mg/dL mg/dL (8.5-10.5) Total Bilirubin 0.3 mg/dL mg/dL (0.15-1.2) AST 18 U/L U/L (0-40) ALT 14 U/L U/L (0-41) Alkaline Phosphata se 97 IU/L IU/L (40-130) Total Protein 7.3 g/dL g/dL (6.6-8.7) Albumin 4.2 g/dL g/dL (3.5-5.2) Globulin 3.1 g/dL g/dL (1.3-4.6) Salicylates < 0.3 mg/dL L mg/ dL (3-10) Acetaminophen < 5.0 ug/mL L ug/ mL (10-30) Ethyl Alcohol < 10 mg/dL mg/dL (0-10) Discharge Plan Discharge Patient Disposition: Admitted As Inpatient Admit Provider: Israel Nolan Condition: Stable Coding Level of Care Code ED Finished Garment Inspector for Chg Fwd Exam Comprehensive
[2021-05-01 20:52] LABS: Glucose Point of Care 383 mg/dL (70-110)
[2021-05-01 20:53] VITALS: BP 113/55; PULSE 90; RESP 16; O2SAT 97
[2021-05-01 21:14] VITALS: BP 113/55; PULSE 90; RESP 16; TEMP 36.7; O2SAT 97
[2021-05-01 22:00] VITALS: BP 113/55; PULSE 90; RESP 16; TEMP 36.7; O2SAT 97
[2021-05-01 22:19] LABS: Glucose Point of Care 336 mg/dL (70-110)
--- NOTE | 2021-05-01 22:55 | PC.NURSE ---
capillary blood glucose 336. MD notified. no further orders given. continue to monitor patient.
[2021-05-01] MEDS: hyDROXYzine 25 mg Capsule 50 MG PO (23:03)
[2021-05-01] MEDS: trazodone 50 mg Tablet PO (23:03)
[2021-05-02 01:29] LABS: Glucose Point of Care 54 mg/dL (70-110)
[2021-05-02 02:28] LABS: Glucose Point of Care 94 mg/dL (70-110)
[2021-05-02 06:00] VITALS: BP 112/69; PULSE 72; RESP 18; TEMP 36.7; O2SAT 97; BMI 24.4
--- NOTE | 2021-05-02 06:17 | P.NPUHP_ITS ---
Providers/Chief Complaint Admitting Physician: Israel Nolan MD Chief Complaint: SI; DEPRESSION HPI NPU History of Present Illness Juvenal García is a 30 year old male who presented to the emergency room last night with the following report: HPI Narrative: 30-year-old male type I diabetic with no history of prior hospitalization or suicidal attempt for depression. He presents depressed, stating that he wanted to . His plan was to sit in the middle of the road and hopefully a car would hit me. He denies any ingestion, intoxication, or recent illness that is significant. He has had trouble controlling his blood sugars lately, as he has no insurance and no money for insulin. MD complaint: suicidal ideation and feels depressed Onset (ago): hour(s) Duration: constant and getting worse History of same: No Relieving factors: none Exacerbating factors: none Associated psychiatric symptoms: depression and suicidal ideation Associated symptoms: Reports depression and suicidal ideation; Deny auditory hallucinations, visual hallucinations or homicidal ideation If self harm: admits thoughts of self harm and has plan He was admitted to the neuropsychiatry unit for definitive treatment of his i ssues. He says that he has had depression since he was diagnosed with diabetes type 1 at age 11. He said that he has wished he was since he was 11 years old. Initially he said that his childhood was generally good. However later he said that his mother is an asshole. He has never had treatment for his depression. He has been with his girlfriend for about 1 year. He says that she is psychotic and frequently accuses him of stealing her stuff when it is missing. She is also always accusing him of cheating on her. When he works he constantly has to worry that she is going to attack him for cheating on her when he gets home. Yesterday they had an argument and she kicked him out. She has kicked him out 3 times before but this time he thinks it is permanent. He thinks he would be a moron for going back there. 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 He told a coworker that he was going to do that. The boss walked in the same time he was walking out and when he went back in the boss told him that he did not pay people to go out and smoke cigarettes. He says that other employees are allowed to do that but not him. Now he has nowhere to live. He is pessimistic about finding a job. He has no disability and no insurance. He said that his father would get him a bus ticket back there but he has no way to get to [place] where the closest [facility]. He cannot live with his father because his does not like him. If he goes back to [place] he would live with his mother and little brother. He says his mother is never there but he gets along well with his brother. His mother is always out doing drugs and drinking. He thinks that she has disability. She does not work. The fight with his girlfriend of being homeless made him acutely worse yesterday. He is generally depressed with wishes for . He has low motivation, low energy, low self-esteem, low mood, insomnia and wishes for . He denies increased feelings of guilt. He says that he is always hungry but that is possibly because he cannot afford to buy food much of the time. He would like something to help him sleep and to start an antidepressant. He does not know of other family members who have been treated successfully with antidepressants. PAST PSYCHIATRIC HISTORY As above SOCIAL HISTORY As above Meds NPU Home Medications Medication Instructions Recorded Confirmed Last Taken Type insulin asp prt-insulin aspart 35 unit SUBCUT BID 30 Days #10 ml 12/10/20 05/01/21 05/01/21 10:00 Rx [Novolog Mix 70-30 U-100 Insuln] 35 Allergies Allergy/AdvReac Type Severity Reaction Status Date / Time No Known Allergies Allergy Verified 12/09/20 17:57 PFSH NPU PFSH: Medical History (Updated 05/02/21 @ 08:16 by Israel Nolan MD) Financial difficulties Hyperglycemia due to type 1 diabetes mellitus Noncompliance Type 1 diabetes Surgical History (Updated 12/09/20 @ 22:43 by Mariangel Navarro MD) History of cholecystectomy Family History (Updated 12/09/20 @ 22:44 by Mariangel Navarro MD) Denies family history of Diabetes Social History (Updated 12/09/20 @ 22:45 by Mariangel Navarro MD) Smoking and tobacco status: current every day smoker cigarettes Alcohol intake: never Housing: Homeless Financial difficulty paying for basics: Very Hard Mental Status Exam MSE Comments: This is a 30-year-old appropriate weight single male who appears his stated age in no acute distress. He is dressed in hospital scrubs and is in bed. psychomotor activity is normal. Speech is at a regular rate and rhythm, normal volume, good articulation, not pressured. Alert, oriented X3 Attention and concentration appear to be normal. Memory is intact Mood is depressed. Affect is mildly dysphoric. Thought process is logical and goal-directed. Thought content: Denies auditory and visual hallucinations. No delusions or paranoia are noted. He was suicidal yesterday and had the thought of sitting on the road hoping that a car would hit him., He denies homicidal ideation. Fund of knowledge appears to be normal. Insight and judgment appear to be fair. Impulse control is fair. Vitals/I&O/Wt Last Vital Signs Temp 98.0 F 05/01/21 22:00 Pulse 90 05/01/21 22:00 Resp 16 05/01/21 22:00 BP 113/55 05/01/21 22:00 Pulse Ox 97 05/01/21 22:00 Weight last 48 hrs Weight 83.915 kg Data NPU : 05/01/21 19:10 05/01/21 19:10 A&P Assessment and plan (1) Major depressive disorder, recurrent severe without psychotic features: Status: Acute (2) Nicotine dependence, cigarettes, uncomplicated: Status: Chronic Additional A&P Information This is a 30-year-old male who reports depression and wishes for since he was 11 years old and diagnosed with diabetes. He has not had previous treatment. Plan: 1. We will start Lexapro 10 mg and trazodone 100 mg at bedtime. 2. Continue every 15 minute checks for safety. 3. Encourage individual, group and milieu therapies. 4. Encourage sober living treatment after discharge at the highest level of care to which he is willing to commit. 5. We will monitor for safety for himself in the community prior to discharge. 6. We will coordinate with social work to arrange a safe place for him to live upon discharge. Attestations NPU Medical Necessity Statement*: Inpatient hospitalization is medically necessary and the clinically appropriate intervention at this time. We will initiate medications and make changes as indicated. He will be in the hospital for over 2 midnights. Likely length of stay 4-6 days Coding Level of Care Code Acute [facility] for [facility] Fwd Diagnoses Major depressive disorder, recurrent severe without psychotic features F33.2 Nicotine dependence, cigarettes, uncomplicated F17.210
[2021-05-02 07:08] LABS: Glucose Point of Care 123 mg/dL (70-110)
[2021-05-02] MEDS: insulin aspart 70/30 100 units/1 mL 35 UNIT SUBCUT (10:28)
[2021-05-02 11:31] LABS: Glucose Point of Care 352 mg/dL (70-110)
[2021-05-02] MEDS: insulin lispro 100 unit/1 mL SUBCUT ×2 (11:41→20:48)
[2021-05-02 14:00] VITALS: BP 117/72; PULSE 66; RESP 17; TEMP 36.2; O2SAT 97
[2021-05-02 16:42] LABS: Glucose Point of Care 58 mg/dL (70-110)
--- NOTE | 2021-05-02 18:28 | PC.NURSE ---
Patient's evening blood sugar was 58. Evening insulins held due to this. Patient drank juice and received dinner.
[2021-05-02 21:11] LABS: Glucose Point of Care 241 mg/dL (70-110)
[2021-05-02 21:40] VITALS: BP 149/104; PULSE 111; RESP 18; TEMP 36.7; O2SAT 97
[2021-05-02] MEDS: OLANZapine 5 mg ODT PO (22:48)
[2021-05-03 06:00] VITALS: BP 108/70; PULSE 64; RESP 18; TEMP 36.6; O2SAT 96
[2021-05-03 06:32] LABS: Glucose Point of Care 343 mg/dL (70-110)
[2021-05-03] MEDS: insulin lispro 100 unit/1 mL SUBCUT ×2 (07:42→12:25)
[2021-05-03] MEDS: insulin aspart 70/30 100 units/1 mL 35 UNIT SUBCUT (08:59)
[2021-05-03 10:28] LABS: Glucose Point of Care 224 mg/dL (70-110)
--- NOTE | 2021-05-03 12:02 | P.NPUDS_ITS ---
Diagnoses at Discharge Discharge Diagnosis (1) Major depressive disorder, recurrent severe without psychotic features: Status: Acute (2) Nicotine dependence, cigarettes, uncomplicated: Status: Chronic Reason for Visit Reason for Visit: SI; DEPRESSION Brief History: History of Present Illness Juvenal García is a 30 year old male who presented to the emergency room last night with the following report: HPI Narrative: 30-year-old male type I diabetic with no history of prior hospitalization or suicidal attempt for depression. He presents depressed, st ating that he wanted to . His plan was to sit in the middle of the road and hopefully a car would hit me. He denies any ingestion, intoxication, or recent illness that is significant. He has had trouble controlling his blood sugars lately, as he has no insurance and no money for insulin. MD complaint: suicidal ideation and feels depressed Onset (ago): hour(s) Duration: constant and getting worse History of same: No Relieving factors: none Exacerbating factors: none Associated psychiatric symptoms: depression and suicidal ideation Associated symptoms: Reports depression and suicidal ideation; Deny auditory hallucinations, visual hallucinations or homicidal ideation If self harm: admits thoughts of self harm and has plan He was admitted to the neuropsychiatry unit for definitive treatment of his issues. He says that he has had depression since he was diagnosed with diabetes type 1 at age 11. He said that he has wished he was since he was 11 years old. Initially he said that his childhood was generally good. However later he said that his mother is an asshole. He has never had treatment for his depression. He has been with his girlfriend for about 1 year. He says that she is psychotic and frequently accuses him of stealing her stuff when it is missing. She is also always accusing him of cheating on her. When he works he constantly has to worry that she is going to attack him for cheating on her when he gets home. Yesterday they had an argument and she kicked him out. She has kicked him out 3 times before but this time he thinks it is permanent. He thinks he would be a moron for going back there. 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 He told a coworker that he was going to do that. The boss walked in the same time he was walking out and when he went back in the boss told him that he did not pay people to go out and smoke cigarettes. He says that other employees are allowed to do that but not him. Now he has nowhere to live. He is pessimistic about finding a job. He has no disability and no insurance. He said that his father would get him a bus ticket back there but he has no way to get to [place] where the [facility]. He cannot live with his father because his does not like him. If he goes back to [place] he would live with his mother and little brother. He says his mother is never there but he gets along well with his brother. His mother is always out doing drugs and drinking. He thinks that she has disability. She does not work. The fight with his girlfriend of being homeless made him acutely worse yesterday. He is generally depressed with wishes for . He has low motivation, low energy, low self-esteem, low mood, insomnia and wishes for . He denies increased feelings of guilt. He says that he is always hungry but that is possibly because he cannot afford to buy food much of the time. He would like something to help him sleep and to start an antidepressant. He does not know of other family members who have been treated successfully with antidepressants. PAST PSYCHIATRIC HISTORY As above SOCIAL HISTORY As above Hospital Course Hospital Course He slowly acclimated to the individual, group and milieu therapies provided. He did not want to take an antidepressant. He said that he was okay. He was able to contract for safety outside hospital prior to discharge. During the hospitalization, patient had routine laboratory studies which were within normal limits except for few outliers. Additionally there was a general medical evaluation which was also within normal limits and revealed no new acute processes. Discharge Summary: At the time of discharge, lethality was denied. Mood and anxiety were well ma naged. Patient endorsed a plan to follow-up with the aftercare recommendations of the treatment team. Patient was evaluated and deemed to be absent credible lethality, and had achieved the maximum benefit from an inpatient hospitalization, so was discharged. Mental Status Exam MSE Comments: This is a 30-year-old appropriate weight single male who appears his stated age in no acute distress. He is dressed in hospital scrubs. psychomotor activity is normal. Speech is at a regular rate and rhythm, normal volume, good articulation, not pressured. Alert, oriented X3 Attention and concentration appear to be normal. Memory is intact Mood is depressed. Affect is mildly dysphoric. Thought process is logical and goal-directed. Thought content: Denies auditory and visual hallucinations. No delusions or paranoia are noted. He says that he always has some thoughts of thinking he would be better off . He says that today he is not any different than the last several years. He denies any current suicidal ideation., He denies homicidal ideation. Fund of knowledge appears to be normal. Insight and judgment appear to be fair. Impulse control is fair. Cognition: Patient Appearance: Appropriate Level of Consciousness: Awake, Alert, Appropriate and Follows Commands Patient Cognition Impaired: No Ability to Follow Directions: Good Patient Orientation (long list): Person, Place, Time and Name Comprehension Ability: No Impairment Hallucination Type: None Delusion Description: Not Present Thought Process: Appropriate Affect: Affect Description: Anxious Depressive Symptoms: Feelings of Worthlessness, Hopelessness and Unhappiness Behavior: Patient Behavior: Appropriate Speech Pattern: Clear Discharge Data Data Completed and Pending: Pending at discharge Category Date Time Status Drug Screen, Urin e Stat Lab 05/01/21 19:02 Uncollected Urinalysis Stat Lab 05/01/21 19:02 Uncollected Labs from last 24 hours 05/03/21 05/03/21 05/02/21 10:24 06:17 20:39 POC Glucose 224 H 343 H 241 H 05/02/21 16:36 POC Glucose 58 L Vitals: Last Vital Signs Temp 97.8 F 05/03/21 06:00 Pulse 64 05/03/21 06:00 Resp 18 05/03/21 06:00 BP 108/70 05/03/21 06:00 Pulse Ox 96 05/03/21 06:00 Discharge Plan Discharge Patient Disposition: Home Condition: Stable Prescriptions: Continued insulin asp prt-insulin aspart [Novolog Mix 70-30 U-100 Insuln] 100 unit/mL (7 0-30) solution 35 unit SUBCUT BID 30 Days Qty: 10 RF: 5 Discharge Orders: Discharge Order (Routine); Ordered 05/03/21 Ordered By: Israel J Ovidio Discharge Diet: Diabetic Discharge Activity: Resume usual activity Patient Instructions: Opioid Safety Discharge Attestations NPU Time Spent in Discharge Care*: greater than 30 min Specific Discharge Activities: Specific discharge activities: educating patient, discussing with case supervisor/social workers/dc planners, documenting/other paperwork and evaluating patient/reviewing data Status at Discharge: Cognitive status at discharge: cognitively intact , Behavioral status at discharge: cooperative , Coding Level of Care Code Acute [facility] DC note Diagnoses Major depressive disorder, recurrent severe without psychotic features F33.2 Nicotine dependence, cigarettes, uncomplicated F17.210
[2021-05-03 12:28] VITALS: BP 108/70; PULSE 64; RESP 18; TEMP 36.6; O2SAT 96
--- NOTE | 2021-05-04 08:22 | PC.OT ---
OT EVALUATION ORDERS RECEIVED. PATIENT DISCHARGED BEFORE EVALUATION COULD BE COMPLETED.
== END 2021-05-03 12:30 | disposition home or self-care (01) | DRG 885 ==
LOC: ER 19:36 → NP 20:47
PROVIDERS: Admitting Provider Psychiatry & Neurology Psychiatry; Emergency Provider Emergency Medicine; Visit Provider Psychiatry & Neurology Psychiatry
DX: F33.2 Major depressive disorder, recurrent severe without psychotic features (principal); E10.65 Type 1 diabetes mellitus with hyperglycemia; T38.3X6A Underdosing of insulin and oral hypoglycemic [antidiabetic] drugs, initial encounter; Z91.120 Patient's intentional underdosing of medication regimen due to financial hardship; F17.210 Nicotine dependence, cigarettes, uncomplicated; Z59.00 Homelessness unspecified
CPT/HCPCS: 36416; 80053; 80307; 82962; 85025; 96372; 99285; J1815

== ENCOUNTER 2021-05-19 22:02 | Emergency (ER) | payer SELFPAY ==
[2021-05-19 22:08] VITALS: BP 158/93; PULSE 82; RESP 18; TEMP 36.8; O2SAT 98; BMI 24.4
[2021-05-19 22:13] LABS: Glucose Point of Care > 600 mg/dL (70-110)
[2021-05-19 22:30] LABS: Bilirubin Urine Neg (Negative); Blood Urine 2+ (Negative); Glucose Urine UA 4+ (Normal); Ketones Urine Negative (Negative); Nitrate Urine Negative (Negative); Protein Urine Neg (Negative); Specific Gravity, Urine 1.005 (1.005-1.030); Urine Appearance Clear (CLEAR); Urine Color Yellow (Yellow); Urobilinogen Urine Norm (Negative); pH Urine 5 (5-7)
[2021-05-19 22:31] LABS: Add Urine Microscopic? YES; Leukocyte Esterase Urine Negative (Negative)
[2021-05-19 22:32] LABS: Add Urine Culture? No; RBC Urine 0-4 /hpf (0-2); WBC Urine 0-4 /hpf (0-5)
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
[2021-05-19 22:53] VITALS: BP 143/107; PULSE 103; RESP 18; O2SAT 98
[2021-05-19 23:05] LABS: ABG PCO2 40.4 mmHg (35-45); Base Excess ABG 0.1 mmol/L (-2.0-2.0); Blood Gas Allen Test Pos; Blood Gas Sample Site Radial, right; Blood Gas Sample Type Arterial; HCO3 ABG 24.9 mmol/L (22-26); Oxygen Device ROOM AIR; PO2 ABG 96.2 mmHg (80.0-100.0)
[2021-05-19 23:20] LABS: Basophils # 0.1 10^3/uL (0.0-0.1); Basophils % 2.3 %; Eosinophils # 0.4 10^3/uL (0.0-0.8); Eosinophils % 6.6 %; Hemoglobin 12.7 g/dL (11.7-16.6); Lymphocytes # 2.4 10^3/uL (0.8-4.8); Lymphocytes % 39.2 %; Mean Corpuscular HGB Conc 34.3 g/dL (30.0-36.0); Mean Corpuscular Volume 84.5 fl (80-94); Mean Platelet Volume 11.3 fL (7.4-10.4); Monocytes # 0.5 10^3/uL (0.2-0.9); Monocytes % 8.7 %; Neutrophils # 2.64 10^3/uL (1.8-7.7); Neutrophils % 43.2 %; Nucleated Red Blood Cells % 0 %; Platelet Count 365 10^3/cmm (130-400); Red Blood Count 4.38 10^6/uL (4.1-5.3); Red Cell Distribution Width 11.9 % (12.1-15.1); White Blood Count 6.1 10^3/uL (4.0-10.0)
[2021-05-19 23:34] LABS: Ketone (Acetest) Serum Negative (Negative)
[2021-05-19 23:37] LABS: Alanine Aminotransferase 10 U/L (0-41); Albumin Level 4.1 g/dL (3.5-5.2); Alkaline Phosphatase 89 IU/L (40-130); Anion Gap 19.9 (5-19); Aspartate Amino Transferase 9 U/L (0-40); Blood Urea Nitrogen 16 mg/dL (6-20); Calcium 8.4 mg/dL (8.5-10.5); Carbon Dioxide 21 mmol/L (22-29); Chloride 89 mmol/L (98-107); Globulin 2.5 g/dL (1.3-4.6); Glomerular Filtration Rate 60.3 mL/min (90-130); Potassium 5.9 mmol/L (3.5-5.1); Sodium 124 mmol/L (136-145); Total Bilirubin 0.2 mg/dL (0.15-1.2); Total Protein 6.6 g/dL (6.6-8.7)
[2021-05-19 23:38] LABS: Creatinine Clr Calc Pharmacy 90.5622
[2021-05-19 23:46] LABS: Osmolality Calculated 306 mOsm/kg (285-295)
[2021-05-19 23:50] VITALS: RESP 19
[2021-05-19] MEDS: ondansetron 2 mg/ML SDV 2 mL 4 MG IVP (23:50)
[2021-05-19] MEDS: morphine 4 mg/mL SDV 1 mL IVP (23:50)
[2021-05-19 23:51] LABS: Glucose 948 mg/dL (65-115)
[2021-05-19] MEDS: sodium chloride 0.9% 1,000 ML 999 ML IV (23:51)
[2021-05-19 23:57] LABS: Glucose Point of Care > 600 mg/dL (70-110)
[2021-05-20] MEDS: insulin regular-human 100 units/1 mL 10 UNIT IVP ×2 (00:03→00:18)
[2021-05-20 00:06] VITALS: BP 126/86; PULSE 81; RESP 18; O2SAT 97
[2021-05-20] MEDS: sodium chloride 0.9% 1,000 ML 999 ML IV (00:15)
[2021-05-20 01:13] VITALS: BP 123/75; PULSE 90; RESP 17; O2SAT 97
[2021-05-20 01:15] LABS: Glucose Point of Care 281 mg/dL (70-110)
[2021-05-20 01:59] LABS: Glucose Point of Care 173 mg/dL (70-110)
[2021-05-20 02:10] VITALS: BP 101/62; PULSE 79; O2SAT 97
== END 2021-05-20 02:13 | disposition home or self-care (01) ==
PROVIDERS: Emergency Provider Emergency Medicine
DX: E10.65 Type 1 diabetes mellitus with hyperglycemia (principal); Z79.4 Long term (current) use of insulin; F17.210 Nicotine dependence, cigarettes, uncomplicated
CPT/HCPCS: 36416; 36600; 80053; 81001; 82009; 82803; 82962; 85025; 96361; 96374; 96375; 96376; 99284; J1815; J2270; J2405; J7030